=== PATIENT | female | born 1945 ===

== ENCOUNTER 2019-04-19 17:58 | Emergency (ER) | payer OTHER ==
[~2019-04-19] VITALS: Ht 149.9 cm; Wt 38.6 kg
[2019-04-19] MEDS ORDERED: SYNTHROID50 MCG (18:39)
[2019-04-19] MEDS ORDERED: DOLOGEN CAPLET1 EACH PO (20:31)
[2019-04-19] MEDS ORDERED: DUI500 PO (20:31)
== END 2019-04-19 21:14 | disposition home or self-care (01) ==
LOC: ER 17:58
DX: H66.91 Otitis media, unspecified, right ear (principal)